=== PATIENT | male | born 1985 | race Caucasian/White ===

== ENCOUNTER → 2019-07-23 | Outpatient (CLI) | payer BC ==
[~2019-07-23] MED LIST: 0.9 % SODIUM CHLORIDE 10 ML DISP.SYRIN. ID ONE; CONTRAST GIVEN. MC PRN; GADOTERATE 5 MMOL/10ML VIAL. INT ART ONE; IOHEXOL 300 MG/ML 50 ML VIAL. INT ART ONE; LIDOCAINE 1% Multi-Dose 20 ML VIAL. ID ONE; LISI2.5T PO
--- NOTE | 2019-07-23 10:54 | KCIC ---
EYE FOR FOREIGN BODY History: MRI screening Comparison: None. Findings: Single view of the orbits is submitted. No metallic foreign body is identified in the region of orbits. Impression: 1. No metallic foreign body is identified in the region of the orbits. Electronically signed by: Reno Paiz MD (07/23/2019 10:51 AM) [id number]
--- NOTE | 2019-07-23 13:39 | KCIC ---
MR right wrist arthrogram dated 07/23/2019 11:45 AM Indication: Right wrist pain for years , pain on ulnar side , clicking and popping. Comparison: No comparison is available. Technique: Routine MR arthrogram of the right wrist performed after the intra-articular injection of dilute gadolinium. Findings: Contrast material fills the radiocarpal space and the distal radial ulnar joint. The central portion of the articular disc is markedly thinned toward the radial side. There is a large defect through the central articular disc. The dorsal and volar radial ulnar ligamentous attachments are grossly intact. The styloid and foveal attachments are intact. There is some edema within the marrow of the distal ulna with ulnar neutral variance. There is also mild edema within the lunate bone anteriorly no discrete fracture line. The lunotriquetral ligament and scapholunate ligaments are grossly intact. No contrast material extends into the midcarpal space. There is mild thinning of the articular cartilage at the volar aspect of the lunate bone. Flexor and extensor tendons are intact. There is some mild increased signal in the extensor carpi ulnaris. No significant tendon sheath fluid. Carpal tunnel and Guyon's canal is unremarkable. IMPRESSION: 1. 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 Contrast material extends from the radiocarpal space to the distal radioulnar joint. The dorsal and volar radial ulnar attachments are intact. 2. There is edema within the marrow of the distal ulna and lunate bone of uncertain etiology. Although this could be related to reactive edema, distal radial ulnar joint instability and associated bone contusions not excluded. 3. Mild tendinosis of the extensor carpi ulnaris. Electronically signed by: Hao Barros MD (07/23/2019 1:36 PM) [id number]
--- NOTE | 2019-07-23 14:04 | KCIC ---
Fluoroscopic guided right wrist arthrogram dated 07/23/2019. No comparison available. CLINICAL INDICATION: Wrist pain. TECHNIQUE: Potential benefits and risks of the procedure were discussed with the patient and informed consent was obtained. The dorsal aspect of the right wrist was prepped and draped in a sterile fashion. After local anesthesia, a 25-gauge needle was placed to the radiocarpal joint near the mid aspect of the scaphoid bone using fluoroscopic guidance. After confirmation of intra-articular location, approximately 4 cc of a mixture containing 5 cc lidocaine, 5 cc Omnipaque 300, 10 cc saline and 0.1 mL of Dotarem was injected into the radiocarpal space using digital subtraction fluoroscopy. Following injection, the needle was removed and hemostasis was obtained at the puncture site. A dry sterile dressing was applied. Patient tolerated the procedure well. There are no immediate combinations. The patient was then sent to the MR suite for further imaging. 52 seconds fluoroscopic time used for the study. 26 fluoroscopic images. FINDINGS: Digital subtraction images show needle tip at the proximal pole of the scaphoid bone. Contrast material fills the radiocarpal space and extends into the distal radial ulnar joint through a defect at the TFCC complex. IMPRESSION: Fluoroscopic guided right wrist arthrogram for MRI. Please see MRI report dated same day for further information. Electronically signed by: Hao Barros MD (07/23/2019 2:02 PM) [id number]
== END | disposition home or self-care (01) ==
LOC: KCIC 09:58
PROVIDERS: ATTEND Physician Assistant
DX: Z13.5 Encounter for screening for eye and ear disorders (principal); S63.591A Other specified sprain of right wrist, initial encounter; R60.0 Localized edema; M77.8 Other enthesopathies, not elsewhere classified; G89.29 Other chronic pain; X58.XXXA Exposure to other specified factors, initial encounter; Y93.89 Activity, other specified; Y92.89 Other specified places as the place of occurrence of the external cause; Y99.8 Other external cause status
CPT/HCPCS: 70030; 73115; 73222; A9575; Q9967